=== PATIENT | female | born 1955 | race Caucasian/White ===

== ENCOUNTER 2020-10-02 11:42 | Emergency (ER) | payer MEDICARE, MEDICAID ==
--- NOTE | 2020-10-02 12:38 | EDM.PDOC ---
ED HPI GENERAL MEDICAL PROBLEM - General Chief Complaint: Back Pain or Injury Stated Complaint: DIZZY, COUGHING Time Seen by Provider: 10/02/20 11:50 Source of Information: Reports: Patient History Limitations: Reports: Other (slurred speech) - History of Present Illness INITIAL COMMENTS - FREE TEXT/NARRATIVE: Ms. Gutiérrez presents to the ED with slurred speech and weakness. She was sitting in a wheelchair, reports too dizzy to stand. She states she has been feeling dizzy since the weekend, then Thursday she fainted and fell. She is unsure if she had LOC. Some SOB. She has pain and bruising on her Rt arm, Rt ribs and a healing abrasion on the RT side of her head. BP is low. Lung sounds are decreased RT UL, CTA on left , NHRR. No ASHLEY, No abdominal pain, N, V or D. She has not taken anything for her symptoms but takes Vicodin and Lyrica daily. 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 ) Right Shoulder Pain Score (Numeric/FACES): 10 - Related Data Allergies Allergy/AdvReac Type Severity Reaction Status Date / Time No Known Allergies Allergy Verified 10/02/20 12:05 Home Meds: Home Meds Losartan/Hydrochlorothiazide [Losartan-HCTZ 100-25 MG] 25 - 100 mg PO DAILY 05/22/18 [History] Metoprolol Succinate [Toprol Xl] 25 mg PO DAILY 05/22/18 [History] Amphetamine/Dextroamphetamine [Adderall] 20 mg PO BID 10/02/20 [History] Hydrocodone/Acetaminophen [Hydrocodon-Acetaminoph 7.5-325] 1 each PO BID PRN 10/02/20 [History] Meloxicam 15 mg PO DAILY 10/02/20 [History] Pregabalin [Lyrica] 150 mg PO BID 10/02/20 [History] atorvaSTATin [Lipitor] 10 mg PO BEDTIME 10/02/20 [History] Past Medical History Cardiovascular History: Reports: Hypertension [employer] History: Reports: , Other (See Below) Other [employer] History: hysterectomy - Past Surgical History Musculoskeletal Surgical History: Reports: Other (See Below) Other Musculoskeletal Surgeries/Procedures:: shoulder dislocation, hx fractured humerous left arm Social & Family History - Family History Family Medical History: No Pertinent Family History - Tobacco Use Tobacco Use Status *Q: Unknown Ever Used Tobacco - Caffeine Use Caffeine Use: Reports: Coffee ED ROS GENERAL - Review of Systems Review Of Systems: Comprehensive ROS is negative, except as noted in HPI. Respiratory: Reports: Shortness of Breath Musculoskeletal: Reports: Arm Pain, Back Pain, Joint Pain, Muscle Stiffness Skin: Reports: Other (healing abrasion rt side of her head) ED EXAM,LOWER BACK PAIN/INJURY - Physical Exam Exam: See Below Exam Limited By: Other (Slow speech, lethargic) General Appearance: Alert, Lethargic Eye Exam: Bilateral Eye: PERRL Ears: Normal External Exam, Normal Canal Nose: Normal Inspection, Normal Mucosa, No Blood Throat/Mouth: Normal Inspection, Normal Lips, Other (wears a partial lower teeth, denture upper) Head: Atraumatic, Normocephalic Neck: Normal Inspection, Supple, Non-Tender Respiratory/Chest: No Respiratory Distress, Other (Tender chest, decreased Rt UL breath sounds, normal left. ) Cardiovascular: Normal Peripheral Pulses, Regular Rate, Rhythm, No Edema GI/Abdominal: Normal Bowel Sounds, Soft, Non-Tender Extremities: Normal Inspection, Normal Range of Motion Neurological: Alert, Normal Mood/Affect, CN II-XII Intact Skin Exam: Warm, Dry, Ecchymosis (rt arm, rt shoulder) Lymphatic: No Adenopathy ED LACERATION/WOUND PROCEDURES - Additional/Other Procedure(s) Other (Free Text) Procedure(s): Chest tube placed by Dr. Bowen. Skin cleaned with Betadine. 15 of lidocaine given prior to placement.Sterile field insertion of a 36 Azeri attached to a pleura vac. Course - Vital Signs Last Recorded V/S: Last Vital Signs Temp 36.1 C 10/02/20 11:42 Pulse 74 10/02/20 11:49 Resp 16 10/02/20 11:49 BP 106/68 10/02/20 11:49 Pulse Ox 94 L 10/02/20 11:49 - Orders/Labs/Meds Orders: Active Orders 24 hr Category Date Time Status EKG Documentation Completion [RC] ASDIRECTED Care 10/02/20 12:00 Active Head wo Cont [CT] Stat Exams 10/02/20 11:47 Ordered Humerus Rt [CR] Stat Exams 10/02/20 12:00 Ordered Ribs 2V w Chest Rt [CR] Stat Exams 10/02/20 11:48 Ordered COMPREHENSIVE METABOLIC PN,CMP [CHEM] Stat Lab 10/02/20 11:49 Ordered Labs: Laboratory Tests 10/02/20 Range/Units 12:07 WBC 10.1 D (4.0-11.0) K/uL RBC 3.56 L (3.80-5.80) M/uL Hgb 11.1 L (11.5-16.5) g/dL Hct 32.5 L (37.0-47.0) % MCV 91 (76-96) fL MCH 31.2 (27.0-32.0) pg MCHC 34.2 (31.0-35.0) g/dL RDW 14.7 (11.0-16.0) % Plt Count 197 (150-500) K/uL MPV 11.3 H (6.0-10.0) fL Neut % (Auto) 82.2 H (45.0-70.0) % Lymph % (Auto) 7.6 L (20.0-40.0) % [place] % (Auto) 8.9 (3.0-10.0) % Eos % (Auto) 1.1 (1.0-5.0) % Baso % (Auto) 0.2 (0.0-0.5) % Neut # (Auto) 8.32 H (2.00-7.50) K/uL Lymph # (Auto) 0.77 L (1.50-4.00) K/uL [place] # (Auto) 0.90 H (0.20-0.80) K/uL Eos # (Auto) 0.11 (0.04-0.40) K/uL Baso # (Auto) 0.02 (0.02-0.10) K/uL Departure - Departure Time of Disposition: 15:20 Disposition: DC/Tfer to Acute Hospital 02 Condition: Good Clinical Impression: Pneumothorax, right Renal failure (ARF), acute on chronic Qualifiers: Acute renal failure type: unspecified Chronic kidney disease stage: stage 5, not on chronic dialysis Qualified Code(s): N17.9 - Acute kidney failure, unspecified; N18.5 - Chronic kidney disease, stage 5 Hypotension Qualifiers: Hypotension type: unspecified hypotension type Qualified Code(s): I95.9 - Hypotension, unspecified - Discharge Information *PRESCRIPTION DRUG MONITORING PROGRAM REVIEWED*: Yes *COPY OF PRESCRIPTION DRUG MONITORING REPORT IN PATIENT MERISSA: No Referrals: PCP,None [Primary Care Provider] - Additional Instructions: Transfer to [facility] by [facility]. Dr. Swanson accepting physician. ICU Bed 3. Chest tube in place. Performed by DR. Bowen. Sepsis Event Note (ED) - Evaluation Sepsis Screening Result: No Definite Risk - Focused Exam Vital Signs: Vital Signs Temp Pulse Resp BP Pulse Ox 10/02/20 11:49 74 16 106/68 94 L 10/02/20 11:46 87 16 79/48 L 98 10/02/20 11:42 36.1 C 79 16 95/63 98 - My Orders Last 24 Hours: My Active Orders 10/02/20 11:47 Head wo Cont [CT] Stat 10/02/20 11:48 Ribs 2V w Chest Rt [CR] Stat 10/02/20 11:49 COMPREHENSIVE METABOLIC PN,CMP [CHEM] Stat 10/02/20 12:00 EKG Documentation Completion [RC] ASDIRECTED Humerus Rt [CR] Stat - Assessment/Plan Last 24 Hours: My Active Orders 10/02/20 11:47 Head wo Cont [CT] Stat 10/02/20 11:48 Ribs 2V w Chest Rt [CR] Stat 10/02/20 11:49 COMPREHENSIVE METABOLIC PN,CMP [CHEM] Stat 10/02/20 12:00 EKG Documentation Completion [RC] ASDIRECTED Humerus Rt [CR] Stat Assessment:: Renal failure Dehydration Rt Apical pneumothorax Plan: Transfer to [facility] ICU Bed 3.
[2020-10-02] MEDS ORDERED: Sodium Chloride 0.9% 10 ML Syringe FLUSH PRN (12:45)
[2020-10-02] MEDS ORDERED: Sodium Chloride 0.9% 1,000 ML IV SCH (12:45)
[2020-10-02] MEDS ORDERED: Morphine 2 MG/ML SYRINGE IM ONE (13:20)
[2020-10-02] MEDS ORDERED: Morphine 2 MG/ML SYRINGE IVPUSH ONE (13:46)
[2020-10-02] MEDS ORDERED: Morphine 2 MG/ML SYRINGE ONE (13:55)
[2020-10-02] MEDS ORDERED: fentaNYL 100 MCG/2 ML SDV IVPUSH PRN (13:59)
[2020-10-02] MEDS ORDERED: Ondansetron 4 MG/2 ML SDV IVPUSH ONE (14:06)
--- NOTE | 2020-10-02 14:06 | CT ---
Date of Service: 10/02/20 Clinical Data: fall, dizziness UNENHANCED BRAIN CT: Multislice axial acquisition without IV contrast was performed. No priors. There are periventricular lucencies bilaterally consistent with small vessel ischemic change. No masses or mass effect. No intracranial hemorrhage. No evidence of acute or subacute infarct. There is soft tissue emphysema in the skull on the right in the right posterior parietal region consistent with a history of laceration. No underlying fractures. IMPRESSION: No acute intracranial abnormalities. [id number] [facility]
[2020-10-02] MEDS ORDERED: fentaNYL 100 MCG/2 ML SDV ONE (14:07)
--- NOTE | 2020-10-02 14:09 | CR ---
Date of Service: 10/02/20 Clinical Data: fall bruising RIGHT HUMERUS: No acute fracture or dislocation. No lytic or blastic bone lesions. There is soft tissue calcification in the subdeltoid region consistent with calcific tendinitis or bursitis. [id number] [facility]
--- NOTE | 2020-10-02 14:13 | CR ---
Date of Service: 10/02/20 Clinical Data: fall PA CHEST AND RIGHT RIBS: No priors. The heart size is normal. The aorta is calcified and ectatic. There is a moderate size right pneumothorax. There are mildly displaced fractures of the right 5th and 7th ribs posteriorly. There is also a questionable fracture of the right 2nd rib. There is adjacent soft tissue emphysema. The left lung is clear. No pleural effusions. IMPRESSION: Right pneumothorax. Multiple right rib fractures. The patient's physician was notified of the findings by telephone and by [facility] preliminary radiology report. [id number] [facility]
[2020-10-02] MEDS ORDERED: Ondansetron 4 MG/2 ML SDV ONE (14:14)
[2020-10-02] MEDS ORDERED: cefTRIAXone 1 GM Vial IM ONE (14:55)
[2020-10-02] MEDS ORDERED: Lidocaine 2% 5 ML SDV ONE (14:56)
[2020-10-02] MEDS ORDERED: cefTRIAXone 1 GM Vial ONE (15:06)
--- NOTE | 2020-10-02 15:57 | CR ---
DATE OF SERVICE: 10/02/2020 CLINICAL DATA: CHEST TUBE PLACEMENT Portable chest 3:27 p.m.: Comparison is made to a prior exam performed 2:14 p.m. The right chest tube is than reposition and is located in the right hemithorax . It's distal tip is located in the medial aspect of the right hemithorax. Minimal residual right pneumothorax. No pleural effusion on the right. The left lung remains clear. No pleural effusion. There is persistent soft tissue emphysema in the right chest wall. There are multiple right rib fractures. [facility]
--- NOTE | 2020-10-02 16:14 | CR ---
DATE OF SERVICE: 10/02/2020 CLINICAL DATA: CHEST TUBE PLACEMENT Portable chest 3:00 p.m.: Comparison is made to a prior exam at 2:52 p.m. The right chest tube is unchanged in position. Small residual apical pneumothorax on the right. No pleural effusions. The left lung is clear. There is persistent soft tissue emphysema in the right chest wall. [facility]
--- NOTE | 2020-10-02 16:16 | CR ---
DATE OF SERVICE: 10/02/2020 CLINICAL DATA: CHEST TUBE PLACEMENT Portable chest 3:02 p.m.: Comparison is made to a prior exam from earlier. The right chest tube is unchanged in position. The there is persistent small apical pneumothorax. No change from the prior. [facility]
--- NOTE | 2020-10-02 16:19 | CR ---
DATE OF SERVICE: 10/02/2020 CLINICAL DATA: CHEST TUBE PLACEMENT Portable chest 3:06 p.m. Comparison is made to an earlier exam at 3:02 p.m. The right chest tube remains in place. There is a small residual apical pneumothorax. No pneumothorax on the left. No pleural effusions. The there is persistent soft tissue emphysema in the right chest wall. [facility]
--- NOTE | 2020-10-03 09:24 | CR ---
DATE OF SERVICE: 10/03/2020 CLINICAL DATA: Tube placement Portable chest 2:14 p.m.: Comparison is made to a prior exam at 12:14 p.m. There is a right chest tube noted in the right chest wall. It is not located within the right hemithorax. Persistent moderate size right pneumothorax. The left lung remains clear. [facility]TDD
--- NOTE | 2020-10-05 08:22 | PCM.PRNOTE ---
- Free Text/Narrative Note: Patient stable and counseled on indications, risks and benefits of chest tube placement and informed of the indications and risks regarding her right pneumothorax secondary to a prior fall and rib fractures. Patient consent obtained. A time out was performed after the initial chest x-ray was reviewed, the appropriate side was confirmed and marked. Sterile procedure performed with protective gear, sterile field, sterile gown and sterile gloves throughout the procedure. The patient was prepped and draped in a sterile manner using iodone swabs x3 after the patient was positioned in the usual fashion. A total of 8 ml of 1% lidocaine was used to anesthesize the skin, subcutaneous tissue, superior aspect of the rib periosteum and parietal pleura. Nursing assisted with hold right breast up and towards the left chest wall to prevent obscuring incision site. A 2 cm incision was then made parallel to the rib in the midaxillary line at the level of approximately the 5th rib. The subcutaneous tissue superficial and superior to the rib was dissected bluntly to the level of the pleura. The pleura was then entered bluntly. Air release was noted from the pleural space. The disruption in the parietal pleura was expanded bluntly and a finger was inserted and swept carefully in all directions. A36 Italian chest tube was then inserted using my finger as a guide. The chest tube was directed superiorly and inserted. The chest tube was sutured to the skin at the insertion site, and connected securely with tape to a pleurovac. A sterile occlusive dressing was placed over the insertion site. No immediate complications were noted. A post- procedure chest x-ray is pending at the time of this note. Estimated blood loss is 5mL. Repeat xray showed chest tube placement was not in right lamar thorax and likely following rib cage. Patient stable and counseled on repeat chest tube insertion at the same site. Counseled and obtained consent again of indications, risks and benefits. The appropriate site sterilized with iodine swabs and sutures removed with chest tube. The pleura was reassessed and entered bluntly with air release noted. 36 Fr chest tube replaced with good air movement. Sutures placed to anchor the tube and chest xray repeated. Tube within the hemithorax and dressing and seal placed. Tube adjusted and repeat chest xray done. Patient care taken over by [facility] after procedure and in care of Flight crew present. Patient saturations at 98% on room air. No further complications.
== END 2020-10-02 15:15 ==
LOC: LB.ED 11:42
DX: S27.0XXA Traumatic pneumothorax, initial encounter (principal); S40.011A Contusion of right shoulder, initial encounter; I12.0 Hypertensive chronic kidney disease with stage 5 chronic kidney disease or end stage renal disease; N18.5 Chronic kidney disease, stage 5; N17.9 Acute kidney failure, unspecified; I95.9 Hypotension, unspecified; Z79.899 Other long term (current) drug therapy; Z20.822 Contact with and (suspected) exposure to COVID-19; W18.30XA Fall on same level, unspecified, initial encounter
CPT/HCPCS: 32551; 36415; 70450; 71045; 71101-RT; 73060-RT; 80053; 82550; 83880; 84484; 85025; 93005; 96372; 96374; 96375; 99285-25; J0696; J2270; J2405; J3010; J7030; U0002

== ENCOUNTER 2024-04-22 13:58 | Emergency (ER) | payer MEDICAID, MEDICARE ==
[2024-04-22] MEDS: Bacitracin Oint 1 GM U/D Packet TOP ONE (15:08)
== END 2024-04-22 15:20 | disposition home or self-care (01) ==
LOC: LB.ED 13:58
DX: L03.116 Cellulitis of left lower limb (principal); S92.412A Displaced fracture of proximal phalanx of left great toe, initial encounter for closed fracture; I10 Essential (primary) hypertension; E78.00 Pure hypercholesterolemia, unspecified; E66.9 Obesity, unspecified; Z68.36 Body mass index [BMI] 36.0-36.9, adult; Z90.49 Acquired absence of other specified parts of digestive tract; Z90.710 Acquired absence of both cervix and uterus; Z79.899 Other long term (current) drug therapy; X58.XXXA Exposure to other specified factors, initial encounter
CPT/HCPCS: 71101-RT; 73660-T5; 99283

== ENCOUNTER 2024-06-03 15:06 | Observation (INO) | payer MEDICARE ==
[2024-06-03] MEDS: Acetaminophen/HYDROcodone 325-5 MG Tab PO ONE (16:02)
[2024-06-03] MEDS: Acetaminophen/HYDROcodone 325-5 MG Tab ONE (16:16)
[2024-06-03] MEDS ORDERED: Sodium Chloride 0.9% 10 ML Syringe FLUSH PRN (16:28)
[2024-06-03 17:05] LABS: MEAN CORPUSCULAR HEMOGLOBIN 31.6 pg (27.0-32.0); MEAN CORPUSCULAR HGB CONC 33.3 g/dL (31.0-35.0); MEAN PLATELET VOLUME 11.1 fL (6.0-10.0); RED BLOOD CELL COUNT 4.11 M/uL (3.80-5.80); RED CELL DISTRIBUTION WIDTH 14.7 % (11.0-16.0); WHITE BLOOD CELL COUNT,WBC 3.5 K/uL (4.0-11.0)
[2024-06-03 17:16] LABS: ANION GAP 14.2 mmol/L (5.0-15.0); BUN/CREATININE RATIO 16.7 (6-25); CARBON DIOXIDE,CO2 27.9 mmol/L (21.0-32.0); CREATININE 0.84 mg/dL (0.55-1.02); EST CRCL DRUG DOSING (CG) 64.06 mL/min; POTASSIUM,K 4.1 mmol/L (3.5-5.1)
[2024-06-03] MEDS: Metoprolol Tartrate 5 MG/5 ML SDV IVPUSH ONE (17:31)
[2024-06-03] MEDS: Metoprolol Tartrate 5 MG/5 ML SDV ONE (17:38)
[2024-06-03] MEDS ORDERED: Acetaminophen 325 MG Tab PO PRN (18:13)
[2024-06-03] MEDS ORDERED: Acetaminophen/HYDROcodone 325-5 MG Tab ONE (18:45)
[2024-06-03] MEDS: Labetalol 100 MG/20 ML MDV ONE (19:04)
[2024-06-03] MEDS: oxyCODONE 5 MG Tab PO PRN (19:16)
[2024-06-03] MEDS: atorvaSTATin 10 MG Tab PO SCH (19:17)
[2024-06-03] MEDS: Metoprolol Succinate 50 MG Tab.ER PO ONE (19:17)
[2024-06-03] MEDS: Labetalol 100 MG/20 ML MDV IVPUSH ONE (19:19)
[2024-06-03] MEDS ORDERED: Non-Formulary Medication 1 Each (Pregabalin [Lyrica] 150 MG Cap) PO SCH (20:00)
[2024-06-03] MEDS: Pregabalin 75 MG Cap PO SCH (20:10)
[2024-06-03] MEDS: Morphine 4 MG/ML VIAL IVPUSH PRN (22:10)
[2024-06-04] MEDS: Metoprolol Succinate 25 MG Tab.ER PO SCH (07:34)
[2024-06-04] MEDS: Acetaminophen/HYDROcodone 325-5 MG Tab PO PRN (13:55)
== END 2024-06-05 09:52 | disposition home or self-care (01) ==
LOC: LB.ED 15:06 → LB.MS 17:50
PROVIDERS: ADMIT Surgery; ATTEND Surgery
DX: S92.412A Displaced fracture of proximal phalanx of left great toe, initial encounter for closed fracture (principal); I16.0 Hypertensive urgency; E78.00 Pure hypercholesterolemia, unspecified; K21.9 Gastro-esophageal reflux disease without esophagitis; Z87.891 Personal history of nicotine dependence; Z79.899 Other long term (current) drug therapy; X58.XXXA Exposure to other specified factors, initial encounter
CPT/HCPCS: 29515; 36415; 73660; 80048; 85027; 99284; A9270; J1921; J2270; J3490; U0002; 99222; 99232; 99238

== ENCOUNTER 2024-06-17 14:01 | Emergency (ER) | payer MEDICARE ==
[2024-06-17] MEDS: Metoprolol Succinate 100 MG Tab.ER PO ONE (17:31)
[2024-06-17] MEDS: Metoprolol Tartrate 50 MG Tab ONE (17:34)
[2024-06-17] MEDS ORDERED: traMADol 50 MG Tab ONE (18:30)
== END 2024-06-17 18:41 | disposition home or self-care (01) ==
LOC: LB.ED 14:01
DX: S92.311A Displaced fracture of first metatarsal bone, right foot, initial encounter for closed fracture (principal); S92.411A Displaced fracture of proximal phalanx of right great toe, initial encounter for closed fracture; E78.00 Pure hypercholesterolemia, unspecified; I10 Essential (primary) hypertension; K21.9 Gastro-esophageal reflux disease without esophagitis; E66.9 Obesity, unspecified; Z90.710 Acquired absence of both cervix and uterus; Z79.899 Other long term (current) drug therapy; Z79.82 Long term (current) use of aspirin; Z68.36 Body mass index [BMI] 36.0-36.9, adult; X58.XXXA Exposure to other specified factors, initial encounter
CPT/HCPCS: 73660; 99283; A9270

== ENCOUNTER 2024-11-09 15:21 | Emergency (ER) | payer MEDICARE ==
[2024-11-09] MEDS: Ketorolac 30 MG/ML SDV IM ONE (16:11)
[2024-11-09] MEDS ORDERED: Acetaminophen/HYDROcodone 325-5 MG Tab ONE (17:00)
== END 2024-11-09 17:20 | disposition home or self-care (01) ==
LOC: LB.ED 15:21
DX: S42.032A Displaced fracture of lateral end of left clavicle, initial encounter for closed fracture (principal); I10 Essential (primary) hypertension; E78.00 Pure hypercholesterolemia, unspecified; E66.9 Obesity, unspecified; Z79.899 Other long term (current) drug therapy; Z79.82 Long term (current) use of aspirin; Z68.35 Body mass index [BMI] 35.0-35.9, adult; W19.XXXA Unspecified fall, initial encounter; Z87.891 Personal history of nicotine dependence; Z90.89 Acquired absence of other organs
CPT/HCPCS: 73000-LT; 73030-LT; 96372; 99283; A9270-GY; J1885

== ENCOUNTER 2024-11-18 10:31 | Emergency (ER) | payer MEDICARE ==
[2024-11-18] MEDS: Ketorolac 30 MG/ML SDV IM ONE (10:59)
[2024-11-18] MEDS: Ketorolac 30 MG/ML SDV ONE (11:10)
[2024-11-18] MEDS: Acetaminophen/HYDROcodone 325-10 MG Tab PO ONE (11:49)
[2024-11-18] MEDS: Acetaminophen/HYDROcodone 325-10 MG Tab ONE (12:11)
[2024-11-18] MEDS: Acetaminophen/HYDROcodone 325-5 MG Tab ONE (12:11)
== END 2024-11-18 11:50 | disposition home or self-care (01) ==
LOC: LB.ED 10:31
DX: S42.032G Displaced fracture of lateral end of left clavicle, subsequent encounter for fracture with delayed healing (principal); I10 Essential (primary) hypertension; E78.00 Pure hypercholesterolemia, unspecified; K21.9 Gastro-esophageal reflux disease without esophagitis; E66.9 Obesity, unspecified; Z68.36 Body mass index [BMI] 36.0-36.9, adult; Z90.49 Acquired absence of other specified parts of digestive tract; Z90.710 Acquired absence of both cervix and uterus; Z87.891 Personal history of nicotine dependence; Z79.899 Other long term (current) drug therapy; Z79.82 Long term (current) use of aspirin; W19.XXXA Unspecified fall, initial encounter
CPT/HCPCS: 96372; 99283; A9270; J1885